=== PATIENT | male | born 1995 | race Caucasian/White ===

== ENCOUNTER 2024-11-30 12:37 | Emergency (ER) | payer OTHER, SELFPAY ==
[2024-11-30 12:39] VITALS: BP 131/80
[2024-11-30] MEDS: NORCO 5/325 1 TABLET PO (14:03)
--- NOTE | 2024-11-30 14:20 | ED.GENMED ---
History of Present Illness
General
Chief Complaint: Skin Problem
Source: patient
Exam Limitations: none
Time Seen by Provider: 11/30/24 13:45
Nursing documentation reviewed up to this point in time: agreed with
History of Present Illness
History of Present Illness:
see MDM
Past History
Past History
ED Past Medical History: None
Social History
Tobacco: Non-smoker
Alcohol: None
Review of Systems
Review of Systems
Allergies reviewed?: Yes
All Other Systems: Not applicable
Phy Exam
Physical Exam
Physical Exam:
see MDM
Course
Orders/Labs/Results
Orders:
Orders
11/30/24 13:54
Hydrocodone 5/APAP 325 [Emerson 5/325] 1 tablet PO NOW STA
Vital Signs
Initial and Last Documented VS:
Initial Vital Signs
Temp Pulse Resp BP Pulse Ox
37.3 C 90 16 131/80 97
11/30/24 12:39 11/30/24 12:39 11/30/24 12:39 11/30/24 12:39 11/30/24 12:39
Last Documented Vital Signs
Temp Pulse Resp BP Pulse Ox
37.3 C 90 16 131/80 97
11/30/24 12:39 11/30/24 12:39 11/30/24 12:39 11/30/24 12:39 11/30/24 14:20
Procedures
Incision/Drainage/Joint Aspiration
Upper Buttock:
Anethesia: 1% Lidocaine with Epi
Preparation: cleaned with Betadine
Type of procedure: incise
Nature of site: abscess
Description of abscess: less than 3cm
Loculations broken up: Yes
How much fluid was obtained?: small amount
Fluid description: purulent and bloody
Treatment: packed with gauze
MDM/Problems Addressed
Differential Diagnosis Includes:
see MDM
MDM/Problems Addressed:
Note:
CHIEF COMPLAINT(S)
Pain and swelling from a pilonidal cyst.
HISTORY OF PRESENT ILLNESS
The patient is a 29-year-old male who presents following an initial visit at [facility] due to worsening pain and swelling while sitting. Upon evaluation at the previous facility, the patient was diagnosed with a pilonidal cyst 6 days ago. During that
visit, an incision was made to facilitate drainage, but packing was not used. The patient was prescribed an antibiotic, sulfamethoxazole-trimethoprim, but delayed initiating the medication until three days after the diagnosis due to forgetfulness.
Since the initial intervention, the cyst has increased in size and has developed an additional drainage site spontaneously. The patient reports significant discomfort and is seeking additional treatment.
The patient also inquired about pain management options and will be prescribed hydrocodone (Vicodin) for pain relief. The patient is self-employed as a [employer] and has been advised that he may need to take a break from work due to post-procedural
soreness.
no fever, chills, vomiting
PAST MEDICAL AND SURGICAL HISTORY
No past medical history mentioned.
MEDICATIONS
Sulfamethoxazole-trimethoprim.
ALLERGIES
No known drug allergies reported.
REVIEW OF SYSTEMS
- Integumentary: Reports a pilonidal cyst with ongoing drainage and increased size.
- Musculoskeletal: Reports discomfort while sitting.
- General: Reports significant pain associated with the cystic region.
PHYSICAL EXAM
GENERAL: Alert , in no apparent distress
CARDIAC: Regular rate and rhythm .
LUNGS: Clear breath sounds bilaterally, no acute respiratory distress, no wheezes/rales/rhonchi
ABDOMEN: Soft, without focal tenderness, no r/g, no cvat, normal bowel sounds
L suprerior gluteal cleft 3 cm indurated with central incision which is closed
there is a little drainage that can be expressed with pressure
tender
no tracking to anus
NEUROLOGICAL: Alert and oriented, no focal neuro deficits
SKIN: Warm and dry,
PSYCH: Normal and appropriate interaction.
- Nursing notes reviewed and vital signs reviewed.
PLAN
1. Perform incision and drainage of the pilonidal cyst, with local anesthesia administration.
2. Prescribe hydrocodone (Vicodin) for pain management, instructed to be taken as needed for pain relief.
3. Initiate sitz baths starting the day after the procedure to aid healing and reduce discomfort.
4. Advise on rest and potential time off work due to post-procedural soreness.
DIFFERENTIAL DIAGNOSIS
The Differential Diagnosis includes, in no particular order and is not limited to:
1. Pilonidal disease
2. Abscess
3. Cellulitis
4. Folliculitis
5. Hidradenitis suppurativa
6. Infected sebaceous cyst
7. Furuncle
8. Deep dermal or subcutaneous abscess
9. Sacrococcygeal fistula
10. Cutaneous sinus tract
29-year-old male with a history of a recent pilonidal cyst that was opened 6 days ago with an incision but left open to drain presents for increased pain swelling and redness around the incision site in the superior left gluteal cleft with increased
pain. Patient did not start his antibiotics which sound to be Bactrim until yesterday. He has not been doing sitz bath's or soaking in the tub. He says he has now started to see some drainage whereas postprocedure there was not really much that
came out. Patient is not having a fever or chills or vomiting or any systemic symptoms. On exam he has a localized 3 to 4 cm round tender indurated abscess with erythema and a central incision which does express some purulent drainage with
palpation. He is not having any significant swelling or extension of erythema into his rectum.
The incision and drainage procedure was performed by me and patient had successful drainage of loculated collection, it was irrigated and then packed with iodoform gauze to be left in for 24 to 48 hours and be removed at home. Sitz bath's were
encouraged. Continue antibiotics. Outpatient colorectal follow-up encouraged as well
*Pulse Oximetry
SaO2: 97
Oxygen Mode of Delivery: Room air
Patient hypoxic: no (97)
*Critical Care Note
Total Time (30-74mins, 75-104mins- exclusive of procedures): Not Applicable
ED Attending Note
-
Portions of this chart may have been created with voice recognition software.� Occasional wrong word or��sound alike� substitutions may have occurred due to the inherent limitations of voice recognition software.
Discharge Plan
Departure
Patient Disposition: Home (Routine Discharge)
Date of Disposition: 11/30/24
Time of Disposition: 14:53
Patient with high blood pressure during this ER visit?: No
Discharge Problem:
Pilonidal abscess
Instructions: Pilonidal cyst (DC)
Prescriptions:
New
hydrocodone-acetaminophen 5-325 mg tablet
1 tab PO Q8H PRN (Reason: Pain) Qty: 9 0RF
docusate sodium [Col-Rite] 100 mg capsule
100 mg PO BID Qty: 10 0RF
Referrals:
Ethan Cain MD [Active, [facility]] - Follow up in 5-7 days
Activity Restrictions/Additional Instructions:
KEEP THE AREA CLEAN AND DRY FOR 24 HOURS
AFTER THAT YOU CAN PULL THE PACKING OUT
THEN START SOAKING EITHER IN SITZ BATH (YOU CAN BUY FROM PHARMACY OR ORDER ONLINE) OR [facility], OR YOU CAN SOAK IN THE TUB WARM WATER FOR 10-15 MINUTES A FEW TIMES A DAY
THE AREA WILL CLOSE ON ITS OWN
CONTINUE THE ANTIBIOTICS
YOU SHOULD CONSIDER FOLLOW UP WITH SURGERY TO HAVE THIS REMOVED SO IT DOES NOT RECUR
TAKE MOTRIN EVER 8 HOURS NEEDED FOR PAIN
TAKE VICODIN EVERY 6 HOURS NEEDED, THIS IS A NARCOTIC, NO ALCOHOL OR DRIVING ON THIS MEDICINE
ALSO USE A STOOL SOFTENER SO YOU DON'T GET CONSTIPATED
REUTRN FOR ANY CONCERNS, FEVER, WORSENING PAIN/REDNESS/SWELLING ETC
Interventions
Interventions:
*Risk Screen - Suicide Last Done: 11/30/24 12:41
*Neglect/Abuse Screening Last Done: 11/30/24 12:41
Discharge Date and Time
Print Language: INDIAN
== END 2024-11-30 15:45 | disposition home or self-care (01) ==
LOC: EMR 12:37
PROVIDERS: EMERGENCY PHYSICIAN Student in an Organized Health Care Education/Training Program; FAMILY PHYSICIAN Family Medicine
DX: L05.01 Pilonidal cyst with abscess (principal)
CPT/HCPCS: 99283; 10080

== ENCOUNTER 2025-01-21 11:24 | Emergency (ER) | payer OTHER, SELFPAY ==
[2025-01-21 11:26] VITALS: BP 128/70
[2025-01-21 12:07] VITALS: BMI 24.9
[2025-01-21] MEDS: TORADOL 15 MG IV (12:08)
[2025-01-21] MEDS: ZOFRAN 4 MG IV (12:08)
[2025-01-21] MEDS: NSS 1000 IV (12:09)
[2025-01-21 12:22] LABS: Hematocrit 40.9 % (39.0-52.0); Hemoglobin 14.7 g/dL (13.0-18.0); Mean Corp Hgb Conc. 35.9 g/dL (33.0-37.0); Mean Corpuscular Volume 82.1 fL (80.0-94.0); Nucleated Red Blood Cells % 0 % (-); Platelet Count 190 10^3/uL (130-400); Red Cell Dist. Width 12.6 % (11.5-14.5)
[2025-01-21 12:40] LABS: ALT (SGPT) 18 U/L (0-50); AST (SGOT) 19 U/L (17-59); Albumin 4.6 g/dl (3.5-5.0); Alkaline Phosphatase 35 U/L (38-126); Blood Urea Nitrogen 13 mg/dl (9-20); Calcium 9.8 mg/dl (8.4-10.2); Carbon Dioxide 28 mmol/L (22-30); Chloride 103 mmol/L (98-107); Estimated Creatinine Clearance > 125 ml/min; Glucose 117 mg/dl (70-99); Lipase 24 U/L (23-300); Potassium 4.1 mmol/L (3.5-5.1); Sodium 137 mmol/L (135-145); Total Protein 7.3 g/dl (6.3-8.2); eGFR > 60.00
[2025-01-21 12:41] LABS: COVID-19 Antigen Negative (Negative)
--- NOTE | 2025-01-21 12:48 | ED.GENMED ---
History of Present Illness
General
Chief Complaint: Abdominal Pain
Source: patient
Exam Limitations: none
Time Seen by Provider: 01/21/25 11:46
Nursing documentation reviewed up to this point in time: agreed with
History of Present Illness
History of Present Illness:
Patient is a 29-year-old male who presents to the emergency department for evaluation of abdominal pain and nausea which started this morning. Patient states that he woke up this morning with generalized abdominal discomfort and nausea. He felt
that he may feel better after vomiting however was unable to do so. He did take 1 dose of Pepto-Bismol with minimal relief in symptoms.
He has not had any known fever or chills. No diarrhea. No dysuria or hematuria.
Patient states that he had frozen foods at home last night with his for dinner.
Additionally, patient states that he concerned about multiple suspected lipomas on his extremities and back which have been progressing for the past few years. These were evaluated by dermatology in the past who did not feel there is any indication
for acute intervention. He denies any new erythema, warmth, or tenderness in associated areas.
Past History
Past History
ED Past Medical History: None
Social History
Tobacco: Non-smoker
Alcohol: None
Review of Systems
Review of Systems
Allergies reviewed?: Yes
All Other Systems: ROS reviewed and negative except as documented in HPI and ROS
Phy Exam
Physical Exam
Physical Exam:
Vitals: Patient's vital signs are stable. Afebrile
General: Patient is well appearing, no acute distress. Nontoxic-appearing
Skin: Warm and dry. Small subcutaneous nodules scattered on left thigh and back without overlying erythema or warmth. No fluctuance.
Head: Normocephalic, atraumatic
Eyes: Sclera nonicteric. EOMs intact. No nystagmus.
Throat: Protecting airway
Neck: Normal ROM, no cervical spine tenderness
Cardiac: Regular rate and rhythm, no murmurs.
Pulm: Normal respiratory effort. Lungs clear bilaterally
Abdomen: Abdomen soft. Mild tenderness in periumbilical/right lower quadrant. No rebound or guarding.
Extremities: No evidence of cyanosis or edema
Neuro: AAOx3. Grossly intact
Psychiatric: Normal affect.
Course
Orders/Labs/Results
Orders:
Orders
01/21/25 12:00
CT Abd/pelvis W Iv Cont Urgent
Comment:
Reason For Exam: periumbilical/ RLQ pain
0.9% Sodium Chloride 1000 ml [Nss] 1,000 ml IV BOLUS
Ketorolac [Toradol] 15 mg IV NOW STA
Ondansetron Injectable [Zofran] 4 mg IV NOW STA
01/21/25 12:06
COVID-19 Antigen Urgent
Source: Nasal Swab
Complete Blood Count/With Diff Urgent
Comprehensive Metabolic Panel Urgent
Lipase Urgent
Influenza A+B Rapid Molecular Urgent
NATHANIEL Source: Nasal Swab
Specimen Description:
Abnormal Lab Results
01/21/25
12:06
WBC 15.2 H 10^3/uL
(4.8-10.8)
Abs Immat Gran (auto) 0.1 H 10^3/uL
(0-0.05)
Absolute Neuts (auto) 13.8 H 10^3/uL
(1.4-6.5)
Absolute Lymphs (auto) 0.6 L 10^3/uL
(1.2-3.4)
Neutrophils % 91.2 H %
(42.2-75.2)
Lymphocytes % 4.2 L %
(20.5-51.1)
Glucose 117 H mg/dl
(70-99)
Alkaline Phosphatase 35 L U/L
(38-126)
01/21/25 12:06
01/21/25 12:06
Vital Signs
Initial and Last Documented VS:
Initial Vital Signs
Temp Pulse Resp BP Pulse Ox
97.6 F 97 16 128/70 96
01/21/25 11:26 01/21/25 11:26 01/21/25 11:26 01/21/25 11:26 01/21/25 11:26
Last Documented Vital Signs
Temp Pulse Resp BP Pulse Ox
97.6 F 81 16 118/84 99
01/21/25 11:26 01/21/25 15:16 01/21/25 15:16 01/21/25 15:16 01/21/25 15:16
MDM/Problems Addressed
Differential Diagnosis Includes:
Not limited to: Gastritis, duodenitis, pancreatitis, appendicitis, GERD, etc.
MDM/Problems Addressed:
29-year-old male with one day of central abdominal pain and nausea/vomiting. No fevers. No diarrhea or urinary symptoms. No chest pain or shortness of breath. Vitals as above. Patient afebrile. On exam, patient appears non-toxic and in no distress.
His abdomen is soft with mild tenderness in periumbilical region and right lower quadrant. No rebound or guarding. Negative Rogers sign. Cardio/pulmonary assessment unremarkable.
Differential broad. Will check basic labs and CT scan abdomen/pelvis. Will give IVF, Toradol, Zofran and reassess.
Update: labs with leukocytosis of 15.2. Chemistry unremarkable. Viral studies negative. CT pending. His pain has significantly improved after dose of Toradol. He has not had any additional episodes of vomiting.
Update: CT scan without any acute intra-abdominal findings. Appendix noted to be normal without signs of surrounding inflammation.
Work up negative. Possible viral gastroenteritis vs food poisoning. Patients symptoms have improved significantly. He feels comfortable with discharge home. Supportive care and very strict return precautions discussed with patient.
Chronic conditions affecting care:
N/A
Acute Exacerbation and/or Progression of Chronic Illness:
N/A
*Radiology
Radiology exam reviewed: radiology read reviewed
*Pulse Oximetry
SaO2: 96
Oxygen Mode of Delivery: Room air
Patient hypoxic: no
*EKG
Interpreted by ED Provider?: NA
*Inspector And Mender Interpretation
Rate: Inspector And Mender- N/A
*Critical Care Note
Total Time (30-74mins, 75-104mins- exclusive of procedures): Not Applicable
ED Attending Note
-
Portions of this chart may have been created with voice recognition software.� Occasional wrong word or��sound alike� substitutions may have occurred due to the inherent limitations of voice recognition software.
Discharge Plan
Departure
Patient Disposition: Home (Routine Discharge)
Date of Disposition: 01/21/25
Time of Disposition: 15:11
Patient with high blood pressure during this ER visit?: No
Condition: Good
Discharge Problem:
Abdominal pain
Instructions: Abdominal Pain
Prescriptions:
New
ondansetron 4 mg tablet,disintegrating
4 mg PO Q8H PRN (Reason: nausea and vomiting) Qty: 7 0RF
No Action
hydrocodone-acetaminophen 5-325 mg tablet
1 tab PO Q8H PRN (Reason: Pain) Qty: 9 0RF
docusate sodium [Col-Rite] 100 mg capsule
100 mg PO BID Qty: 10 0RF
Referrals:
Matt Sanches DO [Family Provider, Family Practice] - Follow up in 5-7 days
Activity Restrictions/Additional Instructions:
RETURN TO THE EMERGENCY DEPARTMENT WITH FEVER, PERSISTENT/WORSENING ABDOMINAL PAIN, INTRACTABLE NAUSEA/VOMITING, PERSISTENT LACK OF APPETITE, WORSENING IN CURRENT SYMPTOMS, OR ANY OTHER CONCERNS
- As discussed white blood cell count was elevated today in the emergency department. Please have this repeated by your primary care to ensure trending down. Otherwise your lab work showed no acute abnormalities. Your CT scan showed a normal
appendix without other acute findings.
-You can take Tylenol and/or Motrin as needed for abdominal pain. A prescription for Zofran has been sent to your pharmacy which you can take for persistent nausea. I would recommend a bland diet. Stay well-hydrated.
- Follow-up with primary care for further evaluation/management to ensure that your symptoms are improving
Monitor your symptoms closely and return to the emergency department with any acute worsening/new symptoms or any other concerns
Interventions
Interventions:
*Risk Screen - Suicide Last Done: 01/21/25 12:07
*General Assessment Last Done: 01/21/25 12:07
*Neglect/Abuse Screening Last Done: 01/21/25 15:16
*ED- Fall Risk Assessment Last Done: 01/21/25 15:16
*Nursing Disposition Last Done: 01/21/25 15:16
[facility] Assessment Last Done: 01/21/25 12:10
Discharge Date and Time
Discharge Date/Time: 01/21/25 15:16
Print Language: IRAQI
[2025-01-21 15:16] VITALS: BP 118/84
== END 2025-01-21 15:16 | disposition home or self-care (01) ==
LOC: EMR 11:24
PROVIDERS: Physician Assistant; EMERGENCY PHYSICIAN Emergency Medicine; FAMILY PHYSICIAN Family Medicine
DX: R10.84 Generalized abdominal pain (principal); R11.0 Nausea; Z11.52 Encounter for screening for COVID-19
CPT/HCPCS: 96374; 96375; 96361; 99284; 74177; 80053; 83690; 85025; 87502; 87811; Q9967